=== PATIENT | female | born 1980 | race Hispanic/Latino ===

== ENCOUNTER → 2017-08-31 | Outpatient (CLI) | payer BC ==
--- NOTE | 2017-08-31 12:33 | Diagnostic Imaging Report ---
PROCEDURE:US THYROID COMPARISON:None. INDICATIONS:Thyroid Nodule TECHNIQUE:Transverse and sagittal images were obtained of the thyroid gland. FINDINGS: THYROID GLAND: SIZE: RIGHT LOBE:5 x 2.4 x 2.6 cmEnlarged in size. LEFT LOBE:4.9 x 1.8 x 1.9 cmNormal in size. ISTHMUS:0.4 cm in thicknessNormal in size. APPEARANCE:Homogeneous echotexture without increased vascularity MASSES/Nodules: * Right lobe: Superior pole/interpolar region 2.6 x 2.2 x 2.3 cm solid isoechoic nodule with lobulated contour, and extrathyroidal extension (TR 5). * Left lobe: Inferior pole 0.5 x 0.2 x 0.5 cm predominantly cystic nodule (TR 2). PARATHYROID: No focal parathyroid masses. CONCLUSION: Suspicious 2.6 cm solid nodule in the right lobe. Recommend FNA. Dictated by: James Johnson M.D. on 08/31/2017 at 12:42 Electronically approved by: James Johnson M.D. on 08/31/2017 at 12:42
== END ==
LOC: US 10:49
PROVIDERS: ATTEND Family Medicine
DX: Z12.31 Encounter for screening mammogram for malignant neoplasm of breast (principal); E04.1 Nontoxic single thyroid nodule
CPT/HCPCS: 76536; 77067

== ENCOUNTER → 2017-09-21 | Outpatient (CLI) | payer BC ==
--- NOTE | 2017-09-21 10:13 | Diagnostic Imaging Report ---
Ultrasound-guided thyroid biopsy 09/21/2017 Pre-Procedure Diagnosis: Right thyroid nodule Post-procedure Diagnosis:Right thyroid nodule Information Technology Manager: Alexandra Bear Braid Maker: None Sedation: None. 1% lidocaine local anesthesia. Estimate blood loss: <5 mL Blood administered: None Complications: None Implants/Grafts: None Specimen: 25-gauge needle biopsy x 4 Procedure: Informed consent was obtained and the patient positioned supine in the ultrasound suite. A timeout was performed, followed by preliminary ultrasound of the thyroid. The neck was prepped and draped in standard sterile fashion. Using real-time ultrasound guidance a 25-gauge needle was advanced into the thyroid nodule of interest. An image was stored in the electronic medical record. The sample was submitted to pathology for adequacy review. The procedure was repeated an additional 3 times, using identical technique with image capture for the medical record. At the end of the procedure a sterile dressing was applied. Findings: 3.8 x 2.2 x 2.1 cm heterogeneous right thyroid nodule. Impression: Successful ultrasound-guided right thyroid nodule needle biopsy. This report was generated with voice-recognition technology. Errors in service vehicle operator can occur. Please interpret accordingly and contact a radiologist if there are any questions regarding the report. Signed by: Dr. Raymond Bear M.D. on 09/21/2017 10:10 AM
== END ==
LOC: US 08:19
PROVIDERS: ATTEND Family Medicine
DX: C73 Malignant neoplasm of thyroid gland (principal)
CPT/HCPCS: 10022; 76942; 88172; 88173; 88305